=== PATIENT | male | born 1990 | race Two or more races ===

== ENCOUNTER 2019-11-08 21:07 | Emergency (ER) | payer OTHER ==
[~2019-11-08] VITALS: Ht 177.8 cm; Wt 80.7 kg
[2019-11-08] MEDS ORDERED: MUPIROCIN 2% OINT 22 GM TUBE TOP ONE (22:00)
[2019-11-08] MEDS ORDERED: BACITRACIN ZINC 0.9GM TP ONE (22:06)
--- NOTE | 2019-11-08 22:46 | Diagnostic Imaging Report ---
FINGER LT - HOPD - 3 views HISTORY: Pain COMPARISON: None available. FINDINGS: See impression. IMPRESSION: Minimally displaced fracture of the tuft of the distal phalanx of the left fourth digit. Signed by: Dr. Brad Vegas MD on 11/08/2019 10:43 PM
== END 2019-11-08 23:30 | disposition home or self-care (01) ==
LOC: FSED 21:07
DX: S67.195A Crushing injury of left ring finger, initial encounter (principal); S67.193A Crushing injury of left middle finger, initial encounter; S62.635A Displaced fracture of distal phalanx of left ring finger, initial encounter for closed fracture; W23.0XXA Caught, crushed, jammed, or pinched between moving objects, initial encounter; Y93.B3 Activity, free weights; Y92.9 Unspecified place or not applicable; S60.032A Contusion of left middle finger without damage to nail, initial encounter
CPT/HCPCS: 99283